=== PATIENT | male | born 1990 | race African-American/Black ===

== ENCOUNTER 2025-01-30 08:28 | Emergency (ER) | payer SELFPAY ==
[~2025-01-30] VITALS: Ht 182.9 cm; Wt 91.0 kg
[2025-01-30 08:44] VITALS: TEMP 36.9; O2SAT 99
[2025-01-30] MEDS: FLUORESCEIN SODIUM 1MG/STRIP RIGHTEYE ONE (09:25)
[2025-01-30] MEDS: TETRACAINE 0.5% OPHTH DROPS 4ML RIGHTEYE ONE (09:25)
[2025-01-30] MEDS ORDERED: IBUP-2029 MT (10:18)
[2025-01-30] MEDS ORDERED: CYCL2DRO EACHEYE (10:18)
[2025-01-30 10:27] VITALS: BP 154/86; PULSE 79; RESP 18; O2SAT 99
== END 2025-01-30 10:31 | disposition home or self-care (01) ==
LOC: ER 08:28
DX: H57.11 Ocular pain, right eye (principal)
CPT/HCPCS: 70480; 99284